=== PATIENT | female | born 1955 | race Asian ===

== ENCOUNTER 2017-08-24 00:54 | Emergency (ER) | payer BC ==
[2017-08-24 00:58] VITALS: BP 123/76; PULSE 96; TEMP 99.7; BMI 39.6
--- NOTE | 2017-08-24 01:12 | PDOC ---
History of Present Illness - General Chief Complaint: Vaginal Bleeding Stated Complaint: VAGINAL BLEEDING Time Seen by Provider: 08/24/17 01:07 History Source: Patient Exam Limitations: No Limitations - History of Present Illness Initial Comments: 08/24/17 01:09 This is a 61-year-old female who comes in complaining of vaginal spotting/ bleeding. Patient is postmenopausal. Patient said she had a little bit of spotting yesterday that stopped and then today it was heavier but has now stopped again. She denies any abdominal pain. She denies any fevers or chills, chest pain shortness of breath. Patient denies history of similar symptoms in the past postmenopausal. Patient is otherwise healthy. PAST MEDICAL HISTORY: no significant history PAST SURGICAL HISTORY: no significant history FAMILY HISTORY: no pertinant history SOCIAL HISTORY: Pt lives with family and is employed. MEDICATIONS: reviewed ALLERGIES: As per nursing notes Review of Systems General: No fevers or chills, no weakness, no weight loss HEENT: No change in vision. No sore throat,. No ear pain CardioVascular: No chest pain or shortness of breath Respiratory:No cough, or wheezing. Gastrointestinal: no nausea, vomitting, diarrhea or constipation, No rectal bleeding Genitourinary: No dysuria, hematuria, or frequency Musculoskeletal: No joint or muscle pain or swelling Neurologic: No headache, vertigo, dizziness or loss of consciousness Psychiatric: nor depression Skin: No rashes or easy bruising Endocrine: no increased thirst or abnormal weight change Allergic: no skin or latex allergy All other systems reviewed and normal GENERAL: The patient is awake, alert, and fully oriented, in no acute distress. HEAD: Normal with no signs of trauma. EYES: Pupils equal, round and reactive to light, extraocular movements intact, sclera anicteric, conjunctiva clear. ABDOMEN: There is pain on palpation, soft abdomen normal bowel sounds PELBVIC: On exam there is no bleeding or blood in the vaginal vault. The cervix appears normal and there is no odor or discharge. On bimanual exam there is no cervical motion tenderness there is no adnexal tenderness or masses palpated. EXTREMITIES: Normal range of motion, no edema. NEUROLOGICAL: Normal speech, normal gait. grossly intact PSYCH: Normal mood, normal affect. SKIN: Warm, Dry, normal turgor, no rashes or lesions noted. 08/24/17 02:19 Transvaginal ultrasound shows normal endometrium small uterine fibroid otherwise no acute pathology Assessment and plan: This is a 61-year-old female who comes in complaining of vaginal bleeding. On my exam there was no vaginal bleeding and the exam was otherwise normal. Patient had an ultrasound that showed a normal endometrium and a small uterine fibroid. Patient was reassured and told to follow-up with her OB if any further bleeding. Patient discharged home. Past History - Past Medical History Allergies/Adverse Reactions: Allergies Allergy/AdvReac Type Severity Reaction Status Date / Time codeine Allergy Verified 07/12/14 19:12 Home Medications: Ambulatory Orders NK [No Known Home Medication] 08/24/17 COPD: No - Suicide/Smoking/Psychosocial Hx Smoking History: Former smoker Have you smoked in the past 12 months: Yes Number of Cigarettes Smoked Daily: 4 If you are a former smoker, when did you quit?: 2017 Information on smoking cessation initiated: No 'Breaking Loose' booklet given: 07/12/14 Hx Alcohol Use: No Substance Use Type: None *Physical Exam - Vital Signs Last Vital Signs Temp Pulse Resp BP Pulse Ox 99.7 F H 96 H 18 123/76 95 08/24/17 00:55 08/24/17 00:55 08/24/17 00:55 08/24/17 00:55 08/24/17 00:55 *DC/Admit/Observation/Transfer Diagnosis at time of Disposition: Vaginal spotting - Discharge Dispostion Disposition: HOME Condition at time of disposition: Stable - Referrals Referrals: Gio Giles MD [Primary Care Provider] - - Patient Instructions Additional Instructions: Your ultrasound was normal with the exception of a small uterine fibroid. However it is important that you follow-up with your OB. Return to the emergency department immediately with ANY new, persistent or worsening symptoms. Continue any medications as previously prescribed by your physician. You should follow up with your primary doctor as soon as possible regarding today's emergency department visit. . Please make sure your doctor reviews the results of your emergency evaluation. Thank you for coming to the Emergency Department today for your care. It was a pleasure to see you today. Please note that your evaluation is INCOMPLETE until you follow-up with your doctor. - Post Discharge Activity
[2017-08-24] MEDS ORDERED: AZITHROMYCIN 250 MG TABLET PO ONE (02:26)
[2017-08-24] MEDS ORDERED: AZITHROMYCIN 250 MG TABLET ONE (02:27)
--- NOTE | 2017-08-24 02:28 | PDOC ---
*Physical Exam - Vital Signs Last Vital Signs Temp Pulse Resp BP Pulse Ox 99.7 F H 96 H 18 123/76 95 08/24/17 00:55 08/24/17 00:55 08/24/17 00:55 08/24/17 00:55 08/24/17 00:55 ED Treatment Course - RADIOLOGY Radiology Studies Ordered: Category Date Time Status PELVIS(OTHER) US [US] Stat Ultrasound 08/24/17 01:27 Taken Progress Note - Progress Note Progress Note: Post completion of the evaluation for vaginal bleeding patient informed me that she has had a cough for 2 weeks. Chest exam lungs are clear and there is good air entry bilateral. Cardiac is normal. Patient given azithromycin and prescription for completion of the Z-Jeffry was sent to pharmacy. *DC/Admit/Observation/Transfer Diagnosis at time of Disposition: Vaginal spotting - Discharge Dispostion Disposition: HOME Condition at time of disposition: Stable - Prescriptions Prescriptions: Azithromycin 250 mg PO DAILY #4 tablet - Referrals Referrals: Gio Giles MD [Primary Care Provider] - - Patient Instructions Additional Instructions: Your ultrasound was normal with the exception of a small uterine fibroid. However it is important that you follow-up with your OB. Return to the emergency department immediately with ANY new, persistent or worsening symptoms. Continue any medications as previously prescribed by your physician. You should follow up with your primary doctor as soon as possible regarding today's emergency department visit. . Please make sure your doctor reviews the results of your emergency evaluation. Thank you for coming to the Emergency Department today for your care. It was a pleasure to see you today. Please note that your evaluation is INCOMPLETE until you follow-up with your doctor. - Post Discharge Activity
== END 2017-08-24 02:29 | disposition home or self-care (01) ==
LOC: FER 00:54
DX: N93.9 Abnormal uterine and vaginal bleeding, unspecified (principal); Z87.891 Personal history of nicotine dependence
CPT/HCPCS: 76856-TC; 99282-25

== ENCOUNTER 2025-01-26 20:42 | Emergency (ER) | payer BC, OTHER ==
[2025-01-26 21:16] VITALS: BP 139/79; PULSE 79; RESP 16; TEMP 98.2; BMI 38.2
[2025-01-26] MEDS ORDERED: KETOROLAC TROMETHAMINE 60 MG/2 ML VIAL ONE (21:49)
[2025-01-26] MEDS: KETOROLAC TROMETHAMINE 60 MG/2 ML VIAL IM ONE (21:52)
[2025-01-26] MEDS ORDERED: CycloBENZAprine HCL 5 MG TABLET ONE (21:53)
[2025-01-26] MEDS: CycloBENZAprine HCL 10 MG TABLET (FP) PO ONE (21:54)
== END 2025-01-26 21:59 | disposition home or self-care (01) ==
LOC: FER 20:42
PROC: 3E0233Z Introduction of Anti-inflammatory into Muscle, Percutaneous Approach (ICD-10-PCS; principal; 2025-01-26)
DX: S39.012A Strain of muscle, fascia and tendon of lower back, initial encounter (principal); X50.1XXA Overexertion from prolonged static or awkward postures, initial encounter
CPT/HCPCS: 99284-25